=== PATIENT | female | born 1950 | race Caucasian/White ===

== ENCOUNTER 2017-08-16 17:44 | Emergency (ER) | payer MEDICARE, OTHER ==
[~2017-08-16] VITALS: Ht 154.9 cm; Wt 111.3 kg
[~2017-08-16 17:44] MED LIST: /ADVA50050; /ADVA50050 IN; /ADVA50050 INH; /DULO30CA; /DULO30CA OR; /FENT25PA TD; /INSU7030; /ISOS5TA; /LOR25TA PO; /METH500TA; /MOXI40TA; /MOXI40TA OR; /TIOT18INH; /TIOT18INH INH; AFRI0.65; AMIT10TA2 OR; AMIT50TA2; AMIT50TA2 OR; ASPI81TA3; ASPI81TA31 OR; ASPI81TA83 OR; ATROVENT NEBULIZER; CLAR5CHW; COLA100C2; CYMBALTA; DELTASONE PO; DIFL150T OR; DOC Q LACE; DUONSOL IN; FEOSOL; FLUC10TA; FURO40TA2 OR; FURO40TA2 PO; FURO80TA2; FURO80TA2 OR; GABA300T; GABA600T3 OR; GARAMYCIN OD; GLIP5TAB20; GLUC1000; HUMUINJ; HUMULIN 70/30; HUMULIN N; HYDROCODONE-APAP; INSULANT; INSULANT SC; INSULIN 70/30; INSULIN 70/30 SC; INSULIN LANTUS; KEPPRA; KLON0.5T; KLON0.5T OR; KLON1TAB OR; LASI40TA; LASI40TA OR; LASI80TA; LEVA250T; LEVA500T; LEVA500T OR; LEVETIRACETAM; LEVETIRACETAM PO; LIDODERM PATCH; LIPI10TA; LIPI10TA OR; LISI20TA5; LOPR50TA; LYRI150C; LYRI150C OR; MACR50CA OR; METO10TA2; METO10TA2 OR; MULTIVIT PO; NEUR600T OR; NICO14DI3; NITR; NOVOLOG SC; NOVOLOG SQ; NOVOLOG100 MG/ML; NOVOLOG100 MG/ML SC; NYSTATIN POWDER; NYSTOP; OXYC20TA15 OR; PLAV75TA2; PLAV75TA2 OR; POTA10CA2 OR; POTA20TA PO; POTA20TA2 OR; PRED10TA2; PRED10TA2 OR; PRED20TA; PRED20TA OR; PRED50TA OR; PRED5TAB OR; PRIL20CA; PRIL20CA OR; PROV90AE; PROZ20CA; SENN8.6T14; SENO8.6T5; SENO8.6T5 OR; SING10TA31; SING10TA31 OR; THERGRAN; TOPI25TA2; TOPI25TA2 OR; TRAM50TA2; TRAM50TA2 OR; VENTAER; VENTAER IN; VENTOLIN ROTAHALER INH; VICO5TAB; VICO5TAB OR; VICODIN; VICODINES TAB; XOPE1.252; [UNRECOGNIZED DRUG - OTHER]; [UNRECOGNIZED DRUG - OTHER]; anexsia PO; hydrocodone PO; mycostatin powder TOP
[2017-08-16] MEDS ORDERED: LISI2.5T3 PO (18:05)
[2017-08-16] MEDS ORDERED: CLIN150C14 PO (18:05)
[2017-08-16] MEDS ORDERED: SPIR25TA2 PO (18:05)
[2017-08-16] MEDS ORDERED: ALPR2TAB3 PO (18:05)
[2017-08-16] MEDS ORDERED: BACL10TA2 PO (18:05)
[2017-08-16] MEDS ORDERED: VITA250L PO (18:05)
[2017-08-16] MEDS ORDERED: METO1TAB32 PO (18:05)
[2017-08-16] MEDS ORDERED: MAGN250T7 PO (18:05)
[2017-08-16] MEDS ORDERED: AMIT75TA PO (18:05)
[2017-08-16] MEDS ORDERED: BRIM2OPD (18:07)
[2017-08-16] MEDS ORDERED: BRIN1OPH (18:07)
[2017-08-16 22:57] LABS: BASO # 0.1 10^3/uL (0.0-0.2); BASO % 0.3 % (0.0-1.0); EOS % 6.6 % (0.0-3.0); IMMATURE GRANULOCYTE % 0.7 % (0-0); LYMPH # 2.9 10^3/uL (1.5-4.5); LYMPH % 18.6 % (24.0-44.0); MEAN CORPUSCULAR HEMOGLOBIN 31.3 pg (27.0-33.0); MEAN CORPUSCULAR HGB CONC 30.7 g/dl (32.0-36.5); MEAN CORPUSCULAR VOLUME 101.9 fl (80.0-96.0); MONO # 0.7 10^3/uL (0.0-0.8); MONO % 4.5 % (0.0-5.0); NEUTROPHILS # 10.9 10^3/uL (1.8-7.7); NEUTROPHILS % 69.3 % (36.0-66.0); PLATELET COUNT, AUTOMATED 341 10^3/uL (150-450); RED CELL DISTRIBUTION WIDTH 15.3 % (11.5-14.5); WHITE BLOOD COUNT 15.7 10^3/uL (4.0-10.0)
[2017-08-16 23:24] LABS: CALCIUM LEVEL 9.5 MG/DL (8.8-10.2); CREATININE FOR GFR 1.51 MG/DL (0.55-1.02); GLOMERULAR FILTRATION RATE 36.7 (>45); POTASSIUM SERUM 4.6 MEQ/L (3.5-5.1)
[2017-08-16 23:28] LABS: ERYTHROCYTE SEDIMENTATION RATE 87 mm/hr (0-30)
[2017-08-16] MEDS ORDERED: DOXY100C37 PO (23:54)
[2017-08-17 00:40] VITALS: BP 161/65
--- NOTE | 2017-08-17 07:53 | REP ---
Right elbow for views: Mineralization and joint spaces are normal. There is no fracture or dislocation. There is no hemarthrosis. A long posterior joint line. There is a calcification, possibly a calcified synovial chondromas. Signed by Yaakov Conway MD 08/17/2017 07:44 A
[2017-08-24] MEDS ORDERED: OMEP20CA3 (19:37)
== END 2017-08-17 00:34 | disposition home or self-care (01) ==
LOC: M ED 17:44
DX: L03.113 Cellulitis of right upper limb (principal); Z72.0 Tobacco use

== ENCOUNTER → 2017-10-21 | Outpatient (CLI) | payer MEDICARE, OTHER | LOC: M PLARAD 13:38 | DX: I63.8 Other cerebral infarction (principal); I69.328 Other speech and language deficits following cerebral infarction; R51 Headache; Z53.8 Procedure and treatment not carried out for other reasons ==